=== PATIENT | male | born 1965 | race Caucasian/White ===

== ENCOUNTER 2017-09-25 07:25 | Inpatient (IN) ==
[2017-09-25] MEDS ORDERED: CLINDAMYCIN INJ 600 MG in PREMIX 1 EACH IV STA (07:47)
[2017-09-25] MEDS ORDERED: LEVOFLOXACIN INJ 500 MG in PREMIX 1 EACH IV STA (07:47)
[2017-09-25] MEDS ORDERED: ONDANSETRON 4 MG/2 ML VIAL IV STA (07:51)
[2017-09-25] MEDS ORDERED: DILTIAZEM 50 MG/10 ML VIAL IV STA ×2 (07:51→08:54)
[2017-09-25] MEDS ORDERED: ALBUTEROL 2.5 MG/3 ML NEB RESP TX STA (07:51)
[2017-09-25 08:07] LABS: Basophils % 0.4 % (0.0-0.8); Hematocrit 37.1 VOL% (42.0-52.0); Hemoglobin 11.6 GM/DL (14.0-18.0); Immature Granulocytes % 0.1 %; Immature Granulocytes Absolute 0.01 #; Lymphocytes # 0.7 10*3/uL (1.4-4.0); Lymphocytes % 9.1 % (21.2-54.2); Mean Corpuscular HGB Conc 31.3 GM/DL (32-36); Mean Corpuscular Hemoglobin 29 PG (27-34); Mean Corpuscular Volume 93.7 FL (87-102); Mean Platelet Volume 10.1 FL (9.6-12.0); Monocytes # 0.5 10*3/uL (0.11-0.8); Monocytes % 6.9 % (1.7-12.7); Neutrophils # 6.1 10*3/uL (1.4-7.4); Neutrophils % 83.5 % (38.7-73.9); Platelet Count 297 T/CUMM (130-400); Red Blood Count 3.96 MC/CUMM (3.8-5.5); Red Cell Distribution Width 15.6 % (9.3-17.3); White Blood Count 7.3 T/CUMM (4-12)
[2017-09-25] MEDS ORDERED: SODIUM CHLORIDE 0.9% 250 ML IV STA (08:11)
[2017-09-25 08:19] LABS: INR 1.1; PT Patient Result 11.8 SECS
[2017-09-25 08:22] LABS: ABG Base Excess -0.6 MMOL/L (-2.5-2.5); ABG HCO3 23.7 MMOL/L (20-26); ABG Oxygen Saturation 85.8 % (95-100); ABG PCO2 25.5 MM HG (35-48); ABG PH 7.522 (7.35-7.45); ABG PO2 51.1 MM HG (80-95); ABG TCO2 18.5 MMOL/L (23-27); Allen Test Positive
[2017-09-25] MEDS: DILTIAZEM INJ 100 MG in SODIUM CHLORIDE 0.9% 100 ML IV SCH (08:22)
[2017-09-25 08:31] LABS: Band Neutrophils 39 % (0-10); Lymphocytes 11 % (20-55); Platelet Estimate Normal; Segmented Neutrophils 44 % (50-85); Total Cells Counted 100
[2017-09-25 08:32] LABS: Misc Morphology 1S
[2017-09-25 08:40] LABS: Apearance,Urine CLEAR (Clear); Bacteria,Urine Occasional /HPF (Few); Bilirubin,Urine Negative (Negative); Blood, Urine Negative (Negative); Glucose,Urine (UA) Negative (Negative); Ketones,Urine Negative (Negative); Mucus,Urine Occasional /LPF (Occasional); Nitrite,Urine Negative (Negative); Protein,Urine 30 MG/DL; RBC,Urine <1 /HPF (0-4); Urine Color Amber (Yellow); Urine Specific Gravity 1.016 (1.001-1.035); WBC,Urine 1 /HPF (0-6)
[2017-09-25 08:52] LABS: Alanine Aminotransferase 21 U/L (16-61); Albumin 2.5 G/DL (3.4-5.0); Alkaline Phosphatase 90 U/L (45-117); Aspartate Amino Transferase 41 U/L (0-37); Blood Urea Nitrogen 27 MG/DL (7-18); Calcium 9.7 MG/DL (8.5-10.1); Glucose 132 MG/DL (74-106); Lactic Acid 2.5 MMOL/L (0.4-2.0); Osmolality,Calculated 298.4 MOS/KG (273-304); Potassium 3.6 MMOL/L (3.5-5.1); Sodium 147 MMOL/L (136-145); Total Protein 7.5 G/DL (6.4-8.3)
[2017-09-25] MEDS ORDERED: SODIUM CHLORIDE 0.9% 1,000 ML IV STA (09:17)
[2017-09-25] MEDS ORDERED: ONDANSETRON 4 MG/2 ML VIAL IV PRN (10:01)
[2017-09-25] MEDS ORDERED: ENOXAPARIN 40 MG/0.4 ML SYRINGE SUBCUT SCH (10:30)
[2017-09-25] MEDS: PANTOPRAZOLE 40 MG VIAL IV SCH (11:04)
[2017-09-25] MEDS: DEXTROSE 5% NACL 0.9% 1,000 ML IV SCH ×3 (11:05→19:18)
[2017-09-25] MEDS ORDERED: VANCOMYCIN INJ 1,000 MG in SODIUM CHLORIDE 0.9% 250 ML IV SCH (13:30)
[2017-09-25] MEDS: cefTAZidime 1,000 MG in SYRINGE 1 EACH IV SCH ×2 (15:50→22:00)
[2017-09-25] MEDS: ACETAMINOPHEN 650 MG SUPP RECTAL PRN (15:50)
[2017-09-25] MEDS: ENOXAPARIN 60 MG/0.6 ML SYRINGE SUBCUT SCH (20:12)
[2017-09-26] MEDS: DILTIAZEM INJ 100 MG in SODIUM CHLORIDE 0.9% 100 ML IV SCH ×3 (02:19→16:27)
[2017-09-26] MEDS: ALBUTEROL 2.5 MG/3 ML NEB RESP TX PRN ×3 (02:35→12:32)
[2017-09-26 03:09] LABS: Basophils % 0.2 % (0.0-0.8); Eosinophils % 0.2 % (0.00-10.9); Hematocrit 31.3 VOL% (42.0-52.0); Hemoglobin 9.8 GM/DL (14.0-18.0); Immature Granulocytes % 0.4 %; Immature Granulocytes Absolute 0.04 #; Lymphocytes # 0.7 10*3/uL (1.4-4.0); Lymphocytes % 7.9 % (21.2-54.2); Mean Corpuscular HGB Conc 31.3 GM/DL (32-36); Mean Corpuscular Hemoglobin 29 PG (27-34); Mean Platelet Volume 10.5 FL (9.6-12.0); Monocytes # 0.7 10*3/uL (0.11-0.8); Monocytes % 7.4 % (1.7-12.7); Neutrophils # 7.6 10*3/uL (1.4-7.4); Neutrophils % 83.9 % (38.7-73.9); Platelet Count 269 T/CUMM (130-400); Red Blood Count 3.33 MC/CUMM (3.8-5.5); Red Cell Distribution Width 15.8 % (9.3-17.3); White Blood Count 9.1 T/CUMM (4-12)
[2017-09-26] MEDS: DEXTROSE 5% NACL 0.9% 1,000 ML IV SCH (03:35)
[2017-09-26 03:36] LABS: Osmolality,Calculated 304.9 MOS/KG (273-304); Potassium 3.1 MMOL/L (3.5-5.1)
[2017-09-26 03:42] LABS: Band Neutrophils 1 % (0-10); Eosinophils 2 % (0-10); Lymphocytes 10 % (20-55); Platelet Estimate Normal; Segmented Neutrophils 81 % (50-85); Total Cells Counted 100
[2017-09-26] MEDS ORDERED: FUROSEMIDE 40 MG/4 ML VIAL IV ONE (03:45)
[2017-09-26 04:05] LABS: ABG HCO3 23.6 MMOL/L (20-26); ABG PCO2 33.2 MM HG (35-48); ABG PH 7.441 (7.35-7.45); ABG TCO2 20.4 MMOL/L (23-27)
[2017-09-26] MEDS ORDERED: hydrALAZINE 20 MG/1 ML VIAL IM ONE (04:51)
[2017-09-26] MEDS ORDERED: hydrALAZINE 20 MG/1 ML VIAL IV ONE (05:06)
[2017-09-26] MEDS: cefTAZidime 1,000 MG in SYRINGE 1 EACH IV SCH ×3 (05:12→21:11)
[2017-09-26] MEDS: ENOXAPARIN 60 MG/0.6 ML SYRINGE SUBCUT SCH ×2 (08:14→21:11)
[2017-09-26] MEDS: VANCOMYCIN INJ 1,000 MG in SODIUM CHLORIDE 0.9% 250 ML IV SCH ×2 (09:27→21:12)
[2017-09-26] MEDS ORDERED: POTASSIUM CHLORIDE 20 MEQ TABLET PO SCH (09:30)
[2017-09-26] MEDS: PANTOPRAZOLE 40 MG VIAL IV SCH (09:44)
[2017-09-26] MEDS ORDERED: DEXTROSE 5% IV SCH (12:30)
[2017-09-26] MEDS ORDERED: POTASSIUM CHLORIDE IV SCH (12:30)
[2017-09-26] MEDS ORDERED: POTASSIUM CHLORIDE 20 MEQ TABLET PO PRN (12:51)
[2017-09-26] MEDS ORDERED: MAGNESIUM SULF RIDER 4 GM in PREMIX 1 EACH IV PRN (12:52)
[2017-09-26] MEDS ORDERED: MAGNESIUM SULF RIDER 2 GM in PREMIX 1 EACH IV PRN (12:52)
[2017-09-26] MEDS: POTASSIUM CHLORIDE IV SCH ×5 (15:17→19:39)
[2017-09-26] MEDS: DEXTROSE 5% IV SCH ×5 (15:17→19:39)
[2017-09-26] MEDS: SKIN HEALING OINT (AQUAPHOR) 50 GM TUBE TOP SCH (15:24)
[2017-09-26] MEDS ORDERED: hydrALAZINE 20 MG/1 ML VIAL IV PRN (17:01)
[2017-09-26] MEDS: METOPROLOL TARTRATE 5 MG/5 ML VIAL IV SCH (17:18)
[2017-09-26] MEDS ORDERED: LACTATED RINGERS 1,000 ML IV ONE (20:08)
[2017-09-26] MEDS: MORPHINE 4 MG/1 ML VIAL IV PRN (21:15)
[2017-09-27] MEDS: SODIUM CHLORIDE 0.45% 1,000 ML IV SCH ×4 (00:36→09:15)
[2017-09-27] MEDS: MORPHINE 4 MG/1 ML VIAL IV PRN ×3 (00:37→21:27)
[2017-09-27] MEDS: CARBIDOPA/LEVODOPA 25-100 MG TABLET PO SCH ×4 (00:37→22:01)
[2017-09-27] MEDS: METOPROLOL TARTRATE 5 MG/5 ML VIAL IV SCH ×4 (01:19→17:15)
[2017-09-27 04:15] LABS: ABG Base Excess 0.5 MMOL/L (-2.5-2.5); ABG HCO3 24.9 MMOL/L (20-26); ABG Oxygen Saturation 96.9 % (95-100); ABG PCO2 36.9 MM HG (35-48); ABG PH 7.432 (7.35-7.45); ABG PO2 92.2 MM HG (80-95); ABG TCO2 22.7 MMOL/L (23-27); Pt O2 Delivery Device Ventilator
[2017-09-27 06:12] LABS: Calcium 8.2 MG/DL (8.5-10.1); Osmolality,Calculated 304.7 MOS/KG (273-304); Potassium 3.7 MMOL/L (3.5-5.1)
[2017-09-27] MEDS: cefTAZidime 1,000 MG in SYRINGE 1 EACH IV SCH ×3 (06:25→21:27)
[2017-09-27] MEDS: DILTIAZEM INJ 100 MG in SODIUM CHLORIDE 0.9% 100 ML IV SCH (07:23)
[2017-09-27] MEDS: VANCOMYCIN INJ 1,000 MG in SODIUM CHLORIDE 0.9% 250 ML IV SCH (09:15)
[2017-09-27] MEDS: ENOXAPARIN 60 MG/0.6 ML SYRINGE SUBCUT SCH ×2 (09:16→21:27)
[2017-09-27] MEDS: SKIN HEALING OINT (AQUAPHOR) 50 GM TUBE TOP SCH (09:16)
[2017-09-27] MEDS: ASPIRIN EC 81 MG TABLET PO SCH (09:19)
[2017-09-27] MEDS: PANTOPRAZOLE 40 MG VIAL IV SCH (09:30)
[2017-09-28] MEDS: METOPROLOL TARTRATE 5 MG/5 ML VIAL IV SCH ×4 (01:46→17:15)
[2017-09-28] MEDS: SODIUM CHLORIDE 0.45% 1,000 ML IV SCH ×2 (02:21→20:32)
[2017-09-28 04:30] LABS: Basophils % 0.3 % (0.0-0.8); Eosinophils # 0.2 10*3/uL (0.0-0.87); Eosinophils % 1.9 % (0.00-10.9); Hematocrit 28.9 VOL% (42.0-52.0); Hemoglobin 8.5 GM/DL (14.0-18.0); Immature Granulocytes % 0.8 %; Immature Granulocytes Absolute 0.09 #; Lymphocytes % 9.3 % (21.2-54.2); Mean Corpuscular HGB Conc 29.4 GM/DL (32-36); Mean Corpuscular Hemoglobin 28 PG (27-34); Mean Corpuscular Volume 96.7 FL (87-102); Monocytes # 0.6 10*3/uL (0.11-0.8); Monocytes % 5.6 % (1.7-12.7); Neutrophils # 8.9 10*3/uL (1.4-7.4); Neutrophils % 82.1 % (38.7-73.9); Platelet Count 282 T/CUMM (130-400); Red Blood Count 2.99 MC/CUMM (3.8-5.5); Red Cell Distribution Width 15.9 % (9.3-17.3); White Blood Count 10.8 T/CUMM (4-12)
[2017-09-28 05:08] LABS: Calcium 8.9 MG/DL (8.5-10.1); Osmolality,Calculated 304.6 MOS/KG (273-304); Potassium 3.5 MMOL/L (3.5-5.1)
[2017-09-28] MEDS: cefTAZidime 1,000 MG in SYRINGE 1 EACH IV SCH ×3 (06:10→21:05)
[2017-09-28] MEDS: CARBIDOPA/LEVODOPA 25-100 MG TABLET PO SCH ×3 (09:10→21:05)
[2017-09-28] MEDS: ASPIRIN EC 81 MG TABLET PO SCH (09:10)
[2017-09-28] MEDS: ENOXAPARIN 60 MG/0.6 ML SYRINGE SUBCUT SCH ×2 (09:28→21:04)
[2017-09-28] MEDS: SKIN HEALING OINT (AQUAPHOR) 50 GM TUBE TOP SCH (09:28)
[2017-09-28] MEDS ORDERED: DEXTROSE 5% 1,000 ML IV SCH (09:30)
[2017-09-28] MEDS: PANTOPRAZOLE 40 MG VIAL IV SCH (09:30)
[2017-09-28] MEDS ORDERED: TUBERCULIN SKIN TEST 0.1 ML SYRINGE INTRADERM ONE (13:05)
[2017-09-28] MEDS ORDERED: AMIODARONE INJ 150 MG in DEXTROSE 5% 100 ML IV ONE (22:36)
[2017-09-29] MEDS: SODIUM CHLORIDE 0.45% 1,000 ML IV SCH (03:05)
[2017-09-29] MEDS: METOPROLOL TARTRATE 5 MG/5 ML VIAL IV SCH ×4 (03:11→18:47)
[2017-09-29 04:32] LABS: Basophils % 0.3 % (0.0-0.8); Eosinophils # 0.2 10*3/uL (0.0-0.87); Eosinophils % 2.4 % (0.00-10.9); Hematocrit 26.5 VOL% (42.0-52.0); Hemoglobin 8.4 GM/DL (14.0-18.0); Immature Granulocytes Absolute 0.18 #; Lymphocytes # 0.9 10*3/uL (1.4-4.0); Lymphocytes % 10.3 % (21.2-54.2); Mean Corpuscular HGB Conc 31.7 GM/DL (32-36); Mean Corpuscular Hemoglobin 29 PG (27-34); Mean Corpuscular Volume 92.7 FL (87-102); Mean Platelet Volume 10.4 FL (9.6-12.0); Monocytes # 0.7 10*3/uL (0.11-0.8); Monocytes % 7.1 % (1.7-12.7); NRBC # 0.02 10*3/uL; Neutrophils # 7.1 10*3/uL (1.4-7.4); Neutrophils % 77.9 % (38.7-73.9); Platelet Count 296 T/CUMM (130-400); Red Blood Count 2.86 MC/CUMM (3.8-5.5); Red Cell Distribution Width 15.7 % (9.3-17.3); White Blood Count 9.1 T/CUMM (4-12)
[2017-09-29 04:37] LABS: Osmolality,Calculated 293.4 MOS/KG (273-304); Potassium 2.9 MMOL/L (3.5-5.1)
[2017-09-29] MEDS: cefTAZidime 1,000 MG in SYRINGE 1 EACH IV SCH ×3 (06:39→23:03)
[2017-09-29] MEDS ORDERED: DEXTROSE 5% IV ONE (08:00)
[2017-09-29] MEDS ORDERED: POTASSIUM CHLORIDE IV ONE (08:00)
[2017-09-29] MEDS: ENOXAPARIN 60 MG/0.6 ML SYRINGE SUBCUT SCH ×2 (08:42→21:11)
[2017-09-29] MEDS: CARBIDOPA/LEVODOPA 25-100 MG TABLET PO SCH ×3 (08:43→21:54)
[2017-09-29] MEDS: ASPIRIN EC 81 MG TABLET PO SCH (08:43)
[2017-09-29] MEDS: SKIN HEALING OINT (AQUAPHOR) 50 GM TUBE TOP SCH (08:45)
[2017-09-29] MEDS: PANTOPRAZOLE 40 MG VIAL IV SCH (09:30)
[2017-09-29] MEDS: MORPHINE 4 MG/1 ML VIAL IV PRN ×2 (12:39→16:15)
[2017-09-29] MEDS: SODIUM CHLOR 0.45% KCL 20 MEQ 20 MEQ/1,000 ML BAG IV SCH (13:52)
[2017-09-29] MEDS: DEXTROSE 50% 25 GM/50 ML VIAL IV PRN (21:11)
[2017-09-30] MEDS: METOPROLOL TARTRATE 5 MG/5 ML VIAL IV SCH ×4 (00:21→18:24)
[2017-09-30 05:09] LABS: Calcium 9.1 MG/DL (8.5-10.1); Osmolality,Calculated 290.6 MOS/KG (273-304); Potassium 3.4 MMOL/L (3.5-5.1)
[2017-09-30] MEDS: cefTAZidime 1,000 MG in SYRINGE 1 EACH IV SCH ×3 (06:21→22:31)
[2017-09-30] MEDS: DEXTROSE 50% 25 GM/50 ML VIAL IV PRN (06:22)
[2017-09-30] MEDS: ENOXAPARIN 60 MG/0.6 ML SYRINGE SUBCUT SCH ×2 (09:46→20:52)
[2017-09-30] MEDS: ASPIRIN EC 81 MG TABLET PO SCH (09:46)
[2017-09-30] MEDS: CARBIDOPA/LEVODOPA 25-100 MG TABLET PO SCH ×3 (09:46→21:28)
[2017-09-30] MEDS: PANTOPRAZOLE 40 MG VIAL IV SCH (09:46)
[2017-09-30] MEDS: SKIN HEALING OINT (AQUAPHOR) 50 GM TUBE TOP SCH (09:46)
[2017-09-30] MEDS: SODIUM CHLOR 0.45% KCL 20 MEQ 20 MEQ/1,000 ML BAG IV SCH (10:57)
[2017-10-01] MEDS: METOPROLOL TARTRATE 5 MG/5 ML VIAL IV SCH ×3 (02:04→11:42)
[2017-10-01] MEDS: SODIUM CHLOR 0.45% KCL 20 MEQ 20 MEQ/1,000 ML BAG IV SCH (05:45)
[2017-10-01] MEDS: cefTAZidime 1,000 MG in SYRINGE 1 EACH IV SCH ×3 (05:45→21:20)
[2017-10-01] MEDS: CARBIDOPA/LEVODOPA 25-100 MG TABLET PO SCH ×3 (09:54→20:59)
[2017-10-01] MEDS: PANTOPRAZOLE 40 MG VIAL IV SCH (09:54)
[2017-10-01] MEDS: ENOXAPARIN 60 MG/0.6 ML SYRINGE SUBCUT SCH (09:54)
[2017-10-01] MEDS: SKIN HEALING OINT (AQUAPHOR) 50 GM TUBE TOP SCH (09:55)
[2017-10-01] MEDS: ASPIRIN EC 81 MG TABLET PO SCH (09:55)
[2017-10-01] MEDS: APIXABAN 2.5 MG TABLET PO SCH (20:59)
[2017-10-01] MEDS: METOPROLOL TARTRATE 25 MG TABLET PO SCH (20:59)
[2017-10-01] MEDS: ACETAMINOPHEN 650 MG SUPP RECTAL PRN (23:08)
[2017-10-02] MEDS: SODIUM CHLOR 0.45% KCL 20 MEQ 20 MEQ/1,000 ML BAG IV SCH ×2 (01:30→22:26)
[2017-10-02] MEDS: cefTAZidime 1,000 MG in SYRINGE 1 EACH IV SCH (05:16)
[2017-10-02] MEDS: CARBIDOPA/LEVODOPA 25-100 MG TABLET PO SCH ×3 (08:50→22:12)
[2017-10-02] MEDS: APIXABAN 2.5 MG TABLET PO SCH (08:50)
[2017-10-02] MEDS: METOPROLOL TARTRATE 25 MG TABLET PO SCH ×2 (08:50→22:12)
[2017-10-02] MEDS: ASPIRIN EC 81 MG TABLET PO SCH (08:50)
[2017-10-02] MEDS: SKIN HEALING OINT (AQUAPHOR) 50 GM TUBE TOP SCH (08:50)
[2017-10-02] MEDS: PANTOPRAZOLE 40 MG VIAL IV SCH (09:29)
[2017-10-02] MEDS: APIXABAN 5 MG TABLET PO SCH ×2 (09:34→22:12)
[2017-10-02] MEDS: CLINDAMYCIN INJ 600 MG in PREMIX 1 EACH IV SCH ×3 (10:31→22:17)
[2017-10-03] MEDS: CLINDAMYCIN INJ 600 MG in PREMIX 1 EACH IV SCH ×4 (04:27→21:49)
[2017-10-03] MEDS: METOPROLOL TARTRATE 25 MG TABLET PO SCH ×2 (10:03→21:33)
[2017-10-03] MEDS: APIXABAN 5 MG TABLET PO SCH ×2 (10:03→21:33)
[2017-10-03] MEDS: ASPIRIN EC 81 MG TABLET PO SCH (10:03)
[2017-10-03] MEDS: PANTOPRAZOLE 40 MG VIAL IV SCH (10:03)
[2017-10-03] MEDS: SKIN HEALING OINT (AQUAPHOR) 50 GM TUBE TOP SCH (10:05)
[2017-10-03] MEDS: CARBIDOPA/LEVODOPA 25-100 MG TABLET PO SCH ×3 (10:05→21:33)
[2017-10-03] MEDS: SODIUM CHLOR 0.45% KCL 20 MEQ 20 MEQ/1,000 ML BAG IV SCH (19:40)
[2017-10-04 04:20] LABS: Basophils % 0.5 % (0.0-0.8); Eosinophils # 0.1 10*3/uL (0.0-0.87); Eosinophils % 1.3 % (0.00-10.9); Hematocrit 30.7 VOL% (42.0-52.0); Hemoglobin 9.6 GM/DL (14.0-18.0); Immature Granulocytes % 2.2 %; Immature Granulocytes Absolute 0.14 #; Lymphocytes # 1.1 10*3/uL (1.4-4.0); Lymphocytes % 17.1 % (21.2-54.2); Mean Corpuscular HGB Conc 31.3 GM/DL (32-36); Mean Corpuscular Hemoglobin 29 PG (27-34); Mean Corpuscular Volume 91.6 FL (87-102); Mean Platelet Volume 10.6 FL (9.6-12.0); Monocytes # 0.6 10*3/uL (0.11-0.8); Monocytes % 8.7 % (1.7-12.7); Neutrophils # 4.5 10*3/uL (1.4-7.4); Neutrophils % 70.2 % (38.7-73.9); Platelet Count 391 T/CUMM (130-400); Red Blood Count 3.35 MC/CUMM (3.8-5.5); Red Cell Distribution Width 16.1 % (9.3-17.3); White Blood Count 6.3 T/CUMM (4-12)
[2017-10-04 04:40] LABS: Calcium 8.7 MG/DL (8.5-10.1); Osmolality,Calculated 276.4 MOS/KG (273-304); Potassium 3.5 MMOL/L (3.5-5.1)
[2017-10-04] MEDS: CLINDAMYCIN INJ 600 MG in PREMIX 1 EACH IV SCH ×2 (05:13→10:23)
[2017-10-04 07:57] VITALS: BP 143/81
[2017-10-04] MEDS: CARBIDOPA/LEVODOPA 25-100 MG TABLET PO SCH (09:01)
[2017-10-04] MEDS: SKIN HEALING OINT (AQUAPHOR) 50 GM TUBE TOP SCH (09:01)
[2017-10-04] MEDS: METOPROLOL TARTRATE 25 MG TABLET PO SCH (09:01)
[2017-10-04] MEDS: ASPIRIN EC 81 MG TABLET PO SCH (09:01)
[2017-10-04] MEDS: APIXABAN 5 MG TABLET PO SCH (09:01)
[2017-10-04] MEDS ORDERED: TUBERCULIN SKIN TEST 0.1 ML SYRINGE INTRADERM ONE (10:59)
[2017-10-04] MEDS: PANTOPRAZOLE 40 MG VIAL IV SCH (11:39)
== END 2017-10-04 11:36 | DRG 137 ==
LOC: EDBD → EDUNIT# → N.ED 07:25 → N.EDINP 10:01 → SUATTDRO 10:01 → N.CC 10:18 → N.TELES 09-29 16:31
PROVIDERS: ADMIT Internal Medicine